=== PATIENT | male | born 1940 | race Caucasian/White ===

== ENCOUNTER 2018-01-15 13:40 | Emergency (ER) | payer OTHER ==
--- NOTE | 2018-01-15 16:40 | EDPHYS ---
Physician Documentation [facility] Name: Aayush Cortes Age: 77 yrs Sex: Male : 1940 Arrival Date: 01/15/2018 Time: 13:43 Bed 17 Private MD: Max Taveras V ED Physician Jordan Bowens HPI: 01/15 15:37 This 77 yrs old Male presents to ER via Ambulatory with complaints of Sinus kb Congestion, Chest Congestion, Cough, Headache, Abdominal Pain. 15:37 The patient or guardian reports cough, that is intermittent, described as mild, with no kb sputum. Onset: The symptoms/episode began/occurred 30 day(s) ago. Severity of symptoms: At their worst the symptoms were mild, moderate, in the emergency department the symptoms are unchanged. Modifying factors: The symptoms are alleviated by nothing, the symptoms are aggravated by nothing. Associated signs and symptoms: Pertinent positives: rhinorrhea, Pertinent negatives: chest pain, diarrhea, ear ache, fever, nausea, sore throat, vomiting. The patient has not experienced similar symptoms in the past. The patient has been recently seen at an urgent care, last week, for similar complaints, was given a prescription for antibiotics, given steroids and cough medication. Pt states he has had a lot of sinus congestion and cough for 30 days. Reports it is worse when he lays down so he has not been sleeping well because he has to sit up. Reports he went to 10 days ago and was given amoxicillin, medrol dose pack and tessalon perles, but symptoms have continued. Went back to today and was told they couldn't do anything else for him so he should come to the ER. Historical: - Allergies: 13:56 Celebrex; - Home Meds: 13:56 metformin 500 mg Oral tab 1 tab 2 times per day [Active]; metoprolol tartrate 100 mg aj Oral tab 2 tabs once daily [Active]; Insulin: Novolin 70/30 Sub-Q [Active]; pravastatin 20 mg oral tab 1 tab once daily [Active]; chlorthalidone 25 mg Oral tab 1 tab once daily [Active]; niacin 1,000 mg Oral Tb24 1 tab once daily [Active]; fenofibrate 145 oral cap 1 cap once daily [Active]; clopidogrel 75 mg oral tab 1 tab once daily [Active]; famotidine 40 mg Oral tab 1 tab once daily [Active]; trazodone 50 mg Oral tab nightly [Active]; hydralazine 25 mg Oral tab 1 tab 2 times per day [Active]; loratadine 10 mg oral TbDL once daily [Active]; losartan 100 mg oral tab 1 tab once daily [Active]; - PMHx: 13:56 Diabetes - NIDDM; Hyperlipidemia; Hypertension; Cancer; aj - PSHx: 13:56 Knee surgery; toe nail removal; Disc repair L5; Broken neck c 4,5,6; Bowel resection; aj - Immunization history:: Adult Immunizations up to date. - Social history:: Smoking status: Patient/guardian denies using tobacco. - Ebola Screening: : Patient negative for fever greater than or equal to 101.5 degrees Fahrenheit, and additional compatible Ebola Virus Disease symptoms Patient denies exposure to infectious person Patient denies travel to an Ebola-affected area in the 21 days before illness onset No symptoms or risks identified at this time. ROS: 15:41 Constitutional: Negative for fever, chills, and weight loss, Cardiovascular: Negative kb for chest pain, palpitations, and edema, Abdomen/GI: Negative for abdominal pain, nausea, vomiting, diarrhea, and constipation, Back: Negative for injury and pain, MS/Extremity: Negative for injury and deformity, Skin: Negative for injury, rash, and discoloration, Neuro: Negative for headache, weakness, numbness, tingling, and seizure. 15:41 ENT: Positive for rhinorrhea, sinus congestion. 15:41 Respiratory: Positive for cough, Negative for dyspnea on exertion, hemoptysis, orthopnea, pleurisy, shortness of breath, sputum production, wheezing. Exam: 15:41 Constitutional: This is a well developed, well nourished patient who is awake, alert, kb and in no acute distress. Head/Face: Normocephalic, atraumatic. Chest/axilla: Normal chest wall appearance and motion. Nontender with no deformity. No lesions are appreciated. Cardiovascular: Regular rate and rhythm with a normal S1 and S2. No gallops, murmurs, or rubs. Normal PMI, no JVD. No pulse deficits. Respiratory: Lungs have equal breath sounds bilaterally, clear to auscultation and percussion. No rales, rhonchi or wheezes noted. No increased work of breathing, no retractions or nasal flaring. Abdomen/GI: Soft, non-tender, with normal bowel sounds. No distension or tympany. No guarding or rebound. No evidence of tenderness throughout. Skin: Warm, dry with normal turgor. Normal color with no rashes, no lesions, and no evidence of cellulitis. MS/ Extremity: Pulses equal, no cyanosis. Neurovascular intact. Full, normal range of motion. Neuro: Awake and alert, GCS 15, oriented to person, place, time, and situation. Cranial nerves II-XII grossly intact. Motor strength 5/5 in all extremities. Sensory grossly intact. Cerebellar exam normal. Normal gait. 15:41 ENT: TM's: fluid levels, bilaterally. Vital Signs: 13:56 BP 130 / 79; Pulse 79; Resp 20; Temp 97.9; Pulse Ox 97% on R/A; Weight 113.4 kg; Height aj 6 ft. 0 in. (182.88 cm); 15:15 BP 156 / 55; Pulse 69; Resp 16; Pulse Ox 99% ; bp 16:53 BP 149 / 76; Pulse 65; Resp 16; Pulse Ox 98% ; bp 13:56 Body Mass Index 33.91 (113.40 kg, 182.88 cm) aj MDM: 15:04 Patient medically screened. kb 15:42 Data reviewed: vital signs, nurses notes. Data interpreted: Pulse oximetry: on room air kb is 99 %. Interpretation: normal. 16:39 Counseling: I had a detailed discussion with the patient and/or guardian regarding: the kb historical points, exam findings, and any diagnostic results supporting the discharge/admit diagnosis, radiology results, the need for outpatient follow up, a family practitioner, to return to the emergency department if symptoms worsen or persist or if there are any questions or concerns that arise at home. 01/15 15:10 Order name: Chest Pa And Lat (2 Views) XRAY; Complete Time: 16:42 kb Administered Medications: No medications were administered Disposition: 17:40 Co-signature as Attending Physician, Jordan Bowens MD. Disposition: 01/15/18 16:39 Discharged to Home. Impression: Allergic rhinitis, unspecified. - Condition is Stable. - Discharge Instructions: Allergic Rhinitis. - Medication Reconciliation Form, Thank You Letter, Antibiotic Education, Prescription Opioid Use form. - Follow up: Emergency Department; When: As needed; Reason: Worsening of condition. Follow up: Max Taveras MD; When: 2 - 3 days; Reason: Recheck today's complaints, Continuance of care, Re-evaluation by your physician. - Notes: Take Zyrtec and Flonase daily Follow up with Dr Tavreas Signatures: Dispatcher [employer] EDPR Ethel Gilman, JAVASCRIPT ENGINEER-C JAVASCRIPT ENGINEER-Ckb Cherise Jackson, RN RN Jordan Davalos MD MD gs Peltier, Brian, RN RN bp Corrections: (The following items were deleted from the chart) 16:55 16:39 01/15/2018 16:39 Discharged to Home. Impression: Allergic rhinitis, unspecified. bp Condition is Stable. Forms are Medication Reconciliation Form, Thank You Letter, Antibiotic Education, Prescription Opioid Use. Follow up: Emergency Department; When: As needed; Reason: Worsening of condition. Follow up: Max Taveras; When: 2 - 3 days; Reason: Recheck today's complaints, Continuance of care, Re-evaluation by your physician. kb
--- NOTE | 2018-01-15 16:40 | ER ---
Nurse's Notes [facility] Name: Aayush Cortes Age: 77 yrs Sex: Male : 1940 Arrival Date: 01/15/2018 Time: 13:43 Bed 17 Private MD: Max Taveras V Diagnosis: Allergic rhinitis, unspecified Presentation: 01/15 13:50 Presenting complaint: Patient states: Sinus congestion, productive cough for 10 days. aj Seen by urgent care 10 days ago and given Tessalon Perles and Medrol dose pack, not improved. Denies fever. Transition of care: patient was not received from another setting of care. Onset of symptoms was January 05, 2018. Risk Assessment: Do you want to hurt yourself or someone else? Patient reports no desire to harm self or others. Initial Sepsis Screen: Does the patient meet any 2 criteria? No. Patient's initial sepsis screen is negative. Does the patient have a suspected source of infection? No. Patient's initial sepsis screen is negative. Care prior to arrival: None. 13:50 Method Of Arrival: Ambulatory aj 13:50 Acuity: DANY 3 aj Triage Assessment: 13:56 Headache History: The patient has had previous headaches. General: Appears in no aj apparent distress. comfortable, Behavior is calm, cooperative, appropriate for age. Pain: Complains of pain in face and scalp. EENT: Reports nasal congestion nasal discharge. Neuro: Level of Consciousness is awake, alert, obeys commands, Oriented to person, place, time, situation, Appropriate for age Subsurface Augmentee Operator are equal bilaterally Moves all extremities. Full function Gait is steady, Speech is normal, Facial symmetry appears normal, Pupils are PERRLA, Reports numbness. Respiratory: Reports cough that is productive, Airway is patent Respiratory effort is even, unlabored, Respiratory pattern is regular, symmetrical. Derm: Skin is intact, is healthy with good turgor, Skin is pink, warm \T\ dry. normal. 14:00 Pain: Pain currently is 3 out of 10 on a pain scale. Pain began 2-3 days ago. Also bp complains of no other associated symptoms. Historical: - Allergies: 13:56 Celebrex; aj - Home Meds: 13:56 metformin 500 mg Oral tab 1 tab 2 times per day [Active]; metoprolol tartrate 100 mg aj Oral tab 2 tabs once daily [Active]; Insulin: Novolin 70/30 Sub-Q [Active]; pravastatin 20 mg oral tab 1 tab once daily [Active]; chlorthalidone 25 mg Oral tab 1 tab once daily [Active]; niacin 1,000 mg Oral Tb24 1 tab once daily [Active]; fenofibrate 145 oral cap 1 cap once daily [Active]; clopidogrel 75 mg oral tab 1 tab once daily [Active]; famotidine 40 mg Oral tab 1 tab once daily [Active]; trazodone 50 mg Oral tab nightly [Active]; hydralazine 25 mg Oral tab 1 tab 2 times per day [Active]; loratadine 10 mg oral TbDL once daily [Active]; losartan 100 mg oral tab 1 tab once daily [Active]; - PMHx: 13:56 Diabetes - NIDDM; Hyperlipidemia; Hypertension; Cancer; aj - PSHx: 13:56 Knee surgery; toe nail removal; Disc repair L5; Broken neck c 4,5,6; Bowel resection; aj - Immunization history:: Adult Immunizations up to date. - Social history:: Smoking status: Patient/guardian denies using tobacco. - Ebola Screening: : Patient negative for fever greater than or equal to 101.5 degrees Fahrenheit, and additional compatible Ebola Virus Disease symptoms Patient denies exposure to infectious person Patient denies travel to an Ebola-affected area in the 21 days before illness onset No symptoms or risks identified at this time. Screenin:14 Abuse screen: Denies threats or abuse. Denies injuries from another. Nutritional bp screening: No deficits noted. Tuberculosis screening: No symptoms or risk factors identified. Fall Risk None identified. Assessment: 15:13 General: Appears in no apparent distress. uncomfortable, obese, Behavior is calm, bp cooperative, appropriate for age. Pain: Complains of pain in face. Neuro: Level of Consciousness is awake, alert, obeys commands, Oriented to person, place, time, situation, Appropriate for age. Cardiovascular: No deficits noted. Respiratory: Airway is patent Respiratory effort is even, unlabored, Respiratory pattern is regular, symmetrical. GI: No signs and/or symptoms were reported involving the gastrointestinal system. : No signs and/or symptoms were reported regarding the genitourinary system. EENT: Reports nasal congestion. Derm: No deficits noted. Musculoskeletal: Circulation, motion, and sensation intact. Range of motion: intact in all extremities. 15:45 Reassessment: PT TO XRAY WITH AUTOMATION APPLICATION ENGINEER. bp 16:53 Reassessment: PT D/C HOME AMBULATORY, DX WITH ALLERGIC RHINITIS. bp Vital Signs: 13:56 BP 130 / 79; Pulse 79; Resp 20; Temp 97.9; Pulse Ox 97% on R/A; Weight 113.4 kg; Height aj 6 ft. 0 in. (182.88 cm); 15:15 BP 156 / 55; Pulse 69; Resp 16; Pulse Ox 99% ; bp 16:53 BP 149 / 76; Pulse 65; Resp 16; Pulse Ox 98% ; bp 13:56 Body Mass Index 33.91 (113.40 kg, 182.88 cm) aj ED Course: 13:43 Patient arrived in ED. mr 13:44 Max Taveras MD is Private Physician. mr 13:51 Triage completed. aj 13:56 Arm band placed on right wrist. Patient placed in an exam room. aj 15:03 Ethel Gilman FNP-C [facility]. kb 15:03 Jordan Bowens MD is Attending Physician. kb 15:04 Steven Orellana, [place] is Primary Nurse. bp 15:14 Patient has correct armband on for positive identification. Bed in low position. Call bp light in reach. Side rails up X2. 16:02 Chest Pa And Lat (2 Views) XRAY In Process Unspecified. EDMS 16:39 Max Taveras MD is Referral Physician. kb 16:53 No provider procedures requiring assistance completed. Patient did not have IV access bp during this emergency room visit. Administered Medications: No medications were administered Outcome: 16:39 Discharge ordered by . kb 16:54 Discharged to home ambulatory. bp 16:54 Condition: stable 16:54 Discharge instructions given to patient, Instructed on discharge instructions, follow up and referral plans. Demonstrated understanding of instructions, follow-up care. 16:55 Patient left the ED. bp Signatures: Dispatcher [employer] EDMS Ethel Gilman FNP-C FNP-Cherise Gonzalez, RN RN Peyton Molina mr Steven Orellana, RN RN bp
--- NOTE | 2018-01-15 16:41 | RAD REPORT ---
EXAM DESCRIPTION: Olga Gonzalez (2 Views)01/15/2018 4:08 pm CLINICAL HISTORY: Cough COMPARISON: [id number] FINDINGS: The lungs appear clear of acute infiltrate. The heart is normal size IMPRESSION: No acute abnormalities displayed
== END 2018-01-15 16:55 | disposition home or self-care (01) ==
LOC: ER 13:40
DX: J30.9 Allergic rhinitis, unspecified (principal); I10 Essential (primary) hypertension; E11.9 Type 2 diabetes mellitus without complications; E78.5 Hyperlipidemia, unspecified; Z79.4 Long term (current) use of insulin; Z88.8 Allergy status to other drugs, medicaments and biological substances
CPT/HCPCS: 71046; 99283

== ENCOUNTER 2020-11-18 10:43 | Day surgery (SDC) | payer OTHER ==
[2020-11-15 09:35] LABS: Absolute Lymphocytes (CBC) 1.6 K/uL (0.7-4.9); Basophils % 0.9 % (0-1.3); Hematocrit 44.1 % (39.6-49.0); MPV 7.2 fL (7.6-11.3)
[2020-11-15 09:44] LABS: Protime INR 0.95
[2020-11-15 09:51] LABS: Potassium 4.6 mmol/L (3.5-5.1)
--- NOTE | 2020-11-15 10:05 | RAD REPORT ---
EXAM DESCRIPTION: RAD - Chest Pa And Lat (2 Views) - 11/15/2020 9:47 am CLINICAL HISTORY: PRE OP COMPARISON: Chest Pa And Lat (2 Views) dated 01/15/2018; CHEST PA AND LAT 2 VIEW dated 06/13/2007 FINDINGS: No evidence of edema or pneumonia. The heart size is within normal limits.No acute osseous abnormality. No significant pleural effusions or pneumothorax. IMPRESSION: No acute cardiopulmonary disease.
[~2020-11-18 10:43] MED LIST: HEPA 1000U/500MLS 2,000 UNIT/1,000 ML BAG IV ONE
[2020-11-18] MEDS ORDERED: NA CHLORIDE 0.9% 500 ML ONE (11:37)
[2020-11-18] MEDS ORDERED: MIDAZOLAM HCL 2 MG/2 ML INJ ONE (12:20)
[2020-11-18] MEDS ORDERED: FENTANYL CITR 100 MCG/2 ML ONE (12:21)
[2020-11-18] MEDS ORDERED: ATROPINE SULF 1 MG/10 ML SYR IV ONE (12:21)
[2020-11-18] MEDS ORDERED: HEPARIN 5000 UNIT/ML 1 ML VIAL ONE (12:21)
[2020-11-18] MEDS ORDERED: VERAPAMIL HCL 10 MG/4 ML VIAL IV ONE (12:21)
--- NOTE | 2020-11-18 13:19 | OP ---
Date of Procedure: 11/18/2020 Surgeon: MLEANIA COLE Procedure Performed: Distal aortogram with bilateral angiogram and runoff of lower extremities. Access: Radial artery 6-Chilean closed with TR band. Complications: None. Bleeding: Less than 10 mL. Indication: Severe PAD with significant claudication. Description Of Procedure: After risks, benefits, and alternatives were explained, the patient agreed to the procedure and signed informed consent. The patient was brought into the cardiac catheterizat ion laboratory, prepped and draped in usual sterile fashion. Then, I accessed right radial artery us ing pediatric micropuncture kit and placed a 6-Chilean Slender sheath. Then, I took a long 4-Chilean p igtail catheter into the distal aorta over a J-wire and distal aortogram with runoff all the way to t he feet was done, and then removed the catheter and sheath and placed TR band with good hemostasis. Findings: 1.Distal aorta is patent. 2.Bilateral common iliac, internal and external iliacs are patent. No significant disease. 3.Right common femoral artery is patent and the left common femoral artery has about 30% focal steno sis. 4.Bilateral profunda are patent and the left profunda provides collaterals to the distal SFA. The r ight profunda is totally patent. 5.SFAs: The left SFA has a proximal diffuse 60% to 70% stenosis and OB SCRUB TECH and very good collaterals f rom profunda, fills out the vessel distally all the way to the feet with brisk flow. On the right SF A, there was a mid 60% focal stenosis in multiple places and then OB SCRUB TECH with more sluggish flow with co llaterals from the SFA prior to the blockage area. 6.Below the knee circulation appears to be patent all the way to the feet, three-vessel runoff. Conclusion: Severe bilateral SFA stenosis. Given the patient has significant symptoms, we will plan on intervention on the right SFA OB SCRUB TECH and we will keep the left SFA OB SCRUB TECH for medical management. SR/MODL Voice ID: [id number] Report ID: [id number]
[2020-11-18] MEDS ORDERED: NACHLORIDE 0.45% 1,000 ML IV ONE (13:35)
[2020-11-18 16:08] VITALS: BP 157/89; TEMP 97; O2SAT 97
== END 2020-11-18 15:05 | disposition home or self-care (01) ==
LOC: CCL 10:43
PROVIDERS: ATTEND Internal Medicine
DX: I70.213 Atherosclerosis of native arteries of extremities with intermittent claudication, bilateral legs (principal); I70.92 Chronic total occlusion of artery of the extremities; I10 Essential (primary) hypertension; E78.5 Hyperlipidemia, unspecified; Z20.822 Contact with and (suspected) exposure to COVID-19; Z88.8 Allergy status to other drugs, medicaments and biological substances
CPT/HCPCS: 93005; 85025; 80048; 36415; 85610; 82947 ×2; 85730; 71046; 36200; 75630; U0003; C1893; J1644 ×2; J2250; J3010; J7040